=== PATIENT | male | born 1960 | race Caucasian/White ===

== ENCOUNTER 2017-12-27 23:57 | Emergency (ER) | payer BC, OTHER ==
[~2017-12-27] VITALS: Ht 188 cm; Wt 72.6 kg
[~2017-12-27 23:57] MED LIST: Advil200 M1 PO; CEPH500 PO; CYCL10 PO; GABA300 PO; HYDR1TAB94 PO; K-Dur20 MEQ PO; LEVSOD50 PO; Lasix40 MG PO; MELO7.5 PO; MORP30 PO; NAPR220 PO; PRED10 PO; Percocet 5-3251 EACH PO; Zofran Odt4 MG SL; Zofran Odt8 MG SL; [UNRECOGNIZED DRUG - REMARK]
[2017-12-28 02:00] LABS: BASOPHILS ABSOLUTE AUTO 0.02 K/mm3 (0.00-0.23); BASOPHILS PERCENT AUTO 0 % (0-2); EOSINOPHILS ABSOLUTE AUTO 0.07 K/mm3 (0.00-0.68); EOSINOPHILS PERCENT AUTO 1 % (0-6); Hematocrit 41.3 % (37.0-53.0); Hemoglobin 13.8 g/dL (13.5-17.5); IMMATURE GRAN ABSOLUTE AUTO 0.04 K/mm3 (0.00-0.10); IMMATURE GRAN PERCENT AUTO 1 % (0-1); LYMPHOCYTES ABSOLUTE AUTO 1.49 K/mm3 (0.84-5.20); LYMPHOCYTES PERCENT AUTO 20 % (21-46); MONOCYTES PERCENT AUTO 9 % (4-13); Mean Corpuscular HGB 33.3 pg (26.0-34.0); Mean Corpuscular HGB Conc 33.4 g/dL (31.5-36.5); Mean Corpuscular Volume 100 fL (80-100); Mean Platelet Volume 9.6 fL (9.1-12.4); NEUTROPHILS ABSOLUTE AUTO 5.13 K/mm3 (1.96-9.15); NEUTROPHILS PERCENT AUTO 69 % (41-73); Platelet Count 281 K/mm3 (150-400); RDW Coefficient Variation 13.8 % (11.7-14.2); RDW Standard Deviation 50.3 fL (35.1-46.3); Red Blood Cell Count 4.15 M/mm3 (4.30-5.90); White Blood Cell Count 7.45 K/mm3 (4.00-11.30)
[2017-12-28 02:18] LABS: Alanine Aminotransfer (ALT/SGP 275 U/L (12-78); Albumin/Globulin Ratio 0.9 (0.8-1.8); Alk Phos 360 U/L (50-136); Anion Gap 7 mmol/L (6-16); Aspartate Aminotrans (AST/SGOT 111 U/L (12-37); Bilirubin, Total 0.3 mg/dL (0.1-1.0); Blood Urea Nitrogen 20 mg/dL (8-24); CO2, Blood 29 mmol/L (21-32); Calcium, Blood 7.8 mg/dL (8.5-10.1); Chloride, Blood 104 mmol/L (98-108); Creatinine, Blood 0.71 mg/dL (0.60-1.20); Globulin, Blood 3.3 g/dL (2.2-4.0); Glomerular Filtration Rate >60 (60-); Glucose, Blood 74 mg/dL (70-99); Sodium, Blood 140 mmol/L (136-145); Total Protein, Blood 6.3 g/dL (6.4-8.2); Troponin I <0.015 ng/mL (0.000-0.040)
== END 2017-12-28 03:05 | disposition home or self-care (01) ==
LOC: ER 23:57
PROVIDERS: Emergency Medicine
DX: C43.9 Malignant melanoma of skin, unspecified (principal); C78.02 Secondary malignant neoplasm of left lung; C78.01 Secondary malignant neoplasm of right lung; C78.7 Secondary malignant neoplasm of liver and intrahepatic bile duct; C77.4 Secondary and unspecified malignant neoplasm of inguinal and lower limb lymph nodes; C79.51 Secondary malignant neoplasm of bone; G89.3 Neoplasm related pain (acute) (chronic); R07.9 Chest pain, unspecified; M54.9 Dorsalgia, unspecified; Z88.6 Allergy status to analgesic agent; Z79.899 Other long term (current) drug therapy; F17.210 Nicotine dependence, cigarettes, uncomplicated
CPT/HCPCS: 36415; 71046; 80053; 84484; 85025; 93005; 93010; 96374; 96375; 96376; 99284; J1170; J2405

== ENCOUNTER 2019-02-18 10:42 | Emergency (ER) | payer OTHER ==
[~2019-02-18] VITALS: Ht 188 cm; Wt 70.3 kg
[~2019-02-18 10:42] MED LIST changes: -MORP30 PO; +MORPHABOND ER15 MG PO; +Morphine Sulfat15 MG PO
[2019-02-18] MEDS ORDERED: ONDA8 PO (11:00)
[2019-02-18] MEDS ORDERED: LEVSOD125 PO (11:01)
[2019-02-18 12:39] LABS: BASOPHILS ABSOLUTE AUTO 0.02 K/mm3 (0.00-0.23); BASOPHILS PERCENT AUTO 0 % (0-2); EOSINOPHILS ABSOLUTE AUTO 0.02 K/mm3 (0.00-0.68); EOSINOPHILS PERCENT AUTO 0 % (0-6); Hematocrit 40.4 % (37.0-53.0); Hemoglobin 13.6 g/dL (13.5-17.5); IMMATURE GRAN ABSOLUTE AUTO 0.04 K/mm3 (0.00-0.10); IMMATURE GRAN PERCENT AUTO 1 % (0-1); LYMPHOCYTES ABSOLUTE AUTO 1.14 K/mm3 (0.84-5.20); LYMPHOCYTES PERCENT AUTO 13 % (21-46); MONOCYTES ABSOLUTE AUTO 0.99 K/mm3 (0.16-1.47); MONOCYTES PERCENT AUTO 11 % (4-13); Mean Corpuscular HGB 34.3 pg (26.0-34.0); Mean Corpuscular HGB Conc 33.7 g/dL (31.5-36.5); Mean Corpuscular Volume 102 fL (80-100); Mean Platelet Volume 9.3 fL (9.1-12.4); NEUTROPHILS ABSOLUTE AUTO 6.48 K/mm3 (1.96-9.15); NEUTROPHILS PERCENT AUTO 75 % (41-73); Platelet Count 228 K/mm3 (150-400); RDW Coefficient Variation 13.9 % (11.7-14.2); RDW Standard Deviation 52.4 fL (35.1-46.3); Red Blood Cell Count 3.96 M/mm3 (4.30-5.90); White Blood Cell Count 8.69 K/mm3 (4.00-11.30)
[2019-02-18 13:03] LABS: Alanine Aminotransfer (ALT/SGP 23 U/L (12-78); Albumin, Blood 2.4 g/dL (3.4-5.0); Albumin/Globulin Ratio 1.1 (0.8-1.8); Alk Phos 67 U/L (50-136); Anion Gap 5 mmol/L (6-16); Aspartate Aminotrans (AST/SGOT 30 U/L (12-37); Bilirubin, Total 0.2 mg/dL (0.1-1.0); Blood Urea Nitrogen 11 mg/dL (8-24); CO2, Blood 28 mmol/L (21-32); Calcium, Blood 7.3 mg/dL (8.5-10.1); Chloride, Blood 106 mmol/L (98-108); Creatinine, Blood 0.69 mg/dL (0.60-1.20); Globulin, Blood 2.2 g/dL (2.2-4.0); Glomerular Filtration Rate >60 (60-); Glucose, Blood 85 mg/dL (70-99); Potassium, Blood 3.6 mmol/L (3.5-5.5); Sodium, Blood 139 mmol/L (136-145); Total Protein, Blood 4.6 g/dL (6.4-8.2)
== END 2019-02-18 13:07 | disposition home or self-care (01) ==
LOC: ER 10:42
PROVIDERS: Emergency Medicine
DX: M54.12 Radiculopathy, cervical region (principal); F17.210 Nicotine dependence, cigarettes, uncomplicated
CPT/HCPCS: 36415; 80053; 85025; 99283

== ENCOUNTER 2019-02-19 16:08 | Inpatient (IN) | payer OTHER ==
[~2019-02-19] VITALS: Ht 182.9 cm; Wt 64.2 kg
[~2019-02-19 16:08] MED LIST changes: +LEVSOD125 PO; +ONDA8 PO
[2019-02-19 17:14] LABS: Alanine Aminotransfer (ALT/SGP 33 U/L (12-78); Albumin, Blood 3.2 g/dL (3.4-5.0); Alk Phos 92 U/L (50-136); Anion Gap 5 mmol/L (6-16); Aspartate Aminotrans (AST/SGOT 38 U/L (12-37); Bilirubin, Total 0.4 mg/dL (0.1-1.0); Blood Urea Nitrogen 11 mg/dL (8-24); Bun/Creatinine Ratio 12.7 (12.0-20.0); CO2, Blood 30 mmol/L (21-32); Calcium, Blood 8.5 mg/dL (8.5-10.1); Chloride, Blood 104 mmol/L (98-108); Creatinine, Blood 0.86 mg/dL (0.60-1.20); Globulin, Blood 3.3 g/dL (2.2-4.0); Glomerular Filtration Rate >60 (60-); Glucose, Blood 86 mg/dL (70-99); Sodium, Blood 139 mmol/L (136-145); Total Protein, Blood 6.5 g/dL (6.4-8.2)
[2019-02-19 17:50] LABS: BASOPHILS ABSOLUTE AUTO 0.02 K/mm3 (0.00-0.23); BASOPHILS PERCENT AUTO 0 % (0-2); EOSINOPHILS ABSOLUTE AUTO 0.01 K/mm3 (0.00-0.68); EOSINOPHILS PERCENT AUTO 0 % (0-6); Hematocrit 51.2 % (37.0-53.0); Hemoglobin 17.2 g/dL (13.5-17.5); IMMATURE GRAN ABSOLUTE AUTO 0.05 K/mm3 (0.00-0.10); IMMATURE GRAN PERCENT AUTO 0 % (0-1); LYMPHOCYTES ABSOLUTE AUTO 1.06 K/mm3 (0.84-5.20); LYMPHOCYTES PERCENT AUTO 10 % (21-46); MONOCYTES ABSOLUTE AUTO 1.01 K/mm3 (0.16-1.47); MONOCYTES PERCENT AUTO 9 % (4-13); Mean Corpuscular HGB 33.9 pg (26.0-34.0); Mean Corpuscular HGB Conc 33.6 g/dL (31.5-36.5); Mean Corpuscular Volume 101 fL (80-100); NEUTROPHILS PERCENT AUTO 81 % (41-73); Platelet Count 300 K/mm3 (150-400); RDW Coefficient Variation 14.1 % (11.7-14.2); RDW Standard Deviation 52.4 fL (35.1-46.3); Red Blood Cell Count 5.07 M/mm3 (4.30-5.90); White Blood Cell Count 11.15 K/mm3 (4.00-11.30)
[2019-02-19 18:28] LABS: Source, Urine Catheter
[2019-02-19 18:30] LABS: Appearance, Urine Clear (Clear); Bilirubin, Urine Neg (Neg); Blood, Urine Neg (Neg); Color, Urine Yellow (P-Yellow); Glucose Qualitative, Urine Neg (Neg); Ketones, Urine 1+ (Neg); Leukocyte Esterase, Urine Neg (Neg); Nitrite, Urine Neg (Neg); Protein, Urine Neg (Neg); Urobilinogen, Urine NORM (Normal)
[2019-02-19 18:46] LABS: U Amphetamine Screen Not Detected; U Barbituate Screen Not Detected; U Benzodiazapine Screen Not Detected; U Buprenorphine Screen Not Detected; U Cannabinoids Screen Not Detected; U Cocaine Screen Not Detected; U Methadone Screen Not Detected; U Methamphetamine Screen Not Detected; U Opiates Screen DETECTED; U Oxycodone Screen Not Detected; U Phencyclidine Screen Not Detected; U Propoxyphene Screen Not Detected
[2019-02-19 18:51] LABS: International Normalized Ratio 0.93; Prothrombin Time Results 9.8 Sec (9.7-11.5)
[2019-02-19 21:38] LABS: Adenovirus F 40/41 Not Detected (NOT DETECT); Astrovirus Not Detected (NOT DETECT); Campylobacter Sp Not Detected (NOT DETECT); Cryptosporidium Not Detected (NOT DETECT); Cyclospora Cayetanensis Not Detected (NOT DETECT); E. Coli O157 Not Detected (NOT DETECT); Entamoeba Histolytica Not Detected (NOT DETECT); Enteroaggregative E. coli-EAEC Not Detected (NOT DETECT); Enteropathogenic E. coli-EPEC Not Detected (NOT DETECT); Enterotoxigenic E. coli-ETEC Not Detected (NOT DETECT); Giardia Lamblia Not Detected (NOT DETECT); Norovirus GI/GII Not Detected (NOT DETECT); Plesiomonas Shigelloides Not Detected (NOT DETECT); Rotavirus A Not Detected (NOT DETECT); Salmonella Sp Not Detected (NOT DETECT); Sapovirus Not Detected (NOT DETECT); Shiga Toxin-prod E. coli-STEC Not Detected (NOT DETECT); Shigella/Enteroin E. coli-EIEC Not Detected (NOT DETECT); Vibrio Cholerae Not Detected (NOT DETECT); Vibrio Sp Not Detected (NOT DETECT); Yersinia Enterocolitica Not Detected (NOT DETECT)
[2019-02-20 01:27] LABS: CHOL/HDL RATIO 4.5; Cholesterol 141 mg/dL (50-200); HDL Cholesterol 31 mg/dL (>39); LDL/HDL RATIO 2.9; Low Density Lipoprotein Chol 88 mg/dL (0-110); Triglycerides 108 mg/dL (30-160); Very Low Density Lipoprot Chol 21 mg/dL (6-32)
[2019-02-20 01:32] LABS: Troponin I 0.409 ng/mL (0.000-0.040)
[2019-02-21 09:32] LABS: BASOPHILS ABSOLUTE AUTO 0.01 K/mm3 (0.00-0.23); BASOPHILS PERCENT AUTO 0 % (0-2); EOSINOPHILS ABSOLUTE AUTO 0.02 K/mm3 (0.00-0.68); EOSINOPHILS PERCENT AUTO 0 % (0-6); Hematocrit 39.5 % (37.0-53.0); Hemoglobin 13.4 g/dL (13.5-17.5); IMMATURE GRAN ABSOLUTE AUTO 0.04 K/mm3 (0.00-0.10); IMMATURE GRAN PERCENT AUTO 1 % (0-1); LYMPHOCYTES ABSOLUTE AUTO 1.18 K/mm3 (0.84-5.20); LYMPHOCYTES PERCENT AUTO 16 % (21-46); MONOCYTES ABSOLUTE AUTO 0.99 K/mm3 (0.16-1.47); MONOCYTES PERCENT AUTO 14 % (4-13); Mean Corpuscular HGB 33.8 pg (26.0-34.0); Mean Corpuscular HGB Conc 33.9 g/dL (31.5-36.5); Mean Corpuscular Volume 100 fL (80-100); Mean Platelet Volume 9.9 fL (9.1-12.4); NEUTROPHILS ABSOLUTE AUTO 4.99 K/mm3 (1.96-9.15); NEUTROPHILS PERCENT AUTO 69 % (41-73); Platelet Count 251 K/mm3 (150-400); RDW Standard Deviation 51.1 fL (35.1-46.3); Red Blood Cell Count 3.97 M/mm3 (4.30-5.90); White Blood Cell Count 7.23 K/mm3 (4.00-11.30)
[2019-02-21 09:37] LABS: Anion Gap 7 mmol/L (6-16); Blood Urea Nitrogen 5 mg/dL (8-24); Bun/Creatinine Ratio 7.4 (12.0-20.0); CO2, Blood 27 mmol/L (21-32); Calcium, Blood 7.5 mg/dL (8.5-10.1); Chloride, Blood 111 mmol/L (98-108); Creatinine, Blood 0.68 mg/dL (0.60-1.20); Glomerular Filtration Rate >60 (60-); Glucose, Blood 90 mg/dL (70-99); Potassium, Blood 2.9 mmol/L (3.5-5.5); Sodium, Blood 145 mmol/L (136-145)
[2019-02-22 06:24] LABS: BASOPHILS ABSOLUTE AUTO 0.02 K/mm3 (0.00-0.23); BASOPHILS PERCENT AUTO 0 % (0-2); EOSINOPHILS ABSOLUTE AUTO 0.05 K/mm3 (0.00-0.68); EOSINOPHILS PERCENT AUTO 1 % (0-6); Hematocrit 37.1 % (37.0-53.0); Hemoglobin 12.3 g/dL (13.5-17.5); IMMATURE GRAN ABSOLUTE AUTO 0.01 K/mm3 (0.00-0.10); IMMATURE GRAN PERCENT AUTO 0 % (0-1); LYMPHOCYTES ABSOLUTE AUTO 0.89 K/mm3 (0.84-5.20); LYMPHOCYTES PERCENT AUTO 13 % (21-46); MONOCYTES ABSOLUTE AUTO 1.06 K/mm3 (0.16-1.47); MONOCYTES PERCENT AUTO 15 % (4-13); Mean Corpuscular HGB 33.6 pg (26.0-34.0); Mean Corpuscular HGB Conc 33.2 g/dL (31.5-36.5); Mean Corpuscular Volume 101 fL (80-100); Mean Platelet Volume 9.4 fL (9.1-12.4); NEUTROPHILS ABSOLUTE AUTO 4.98 K/mm3 (1.96-9.15); NEUTROPHILS PERCENT AUTO 71 % (41-73); Platelet Count 221 K/mm3 (150-400); RDW Coefficient Variation 13.9 % (11.7-14.2); RDW Standard Deviation 51.5 fL (35.1-46.3); Red Blood Cell Count 3.66 M/mm3 (4.30-5.90); White Blood Cell Count 7.01 K/mm3 (4.00-11.30)
[2019-02-22 06:51] LABS: Anion Gap 4 mmol/L (6-16); Blood Urea Nitrogen 7 mg/dL (8-24); Bun/Creatinine Ratio 9.8 (12.0-20.0); CO2, Blood 26 mmol/L (21-32); Chloride, Blood 116 mmol/L (98-108); Creatinine, Blood 0.71 mg/dL (0.60-1.20); Glomerular Filtration Rate >60 (60-); Glucose, Blood 80 mg/dL (70-99); Magnesium, Blood 2.5 mg/dL (1.6-2.4); Potassium, Blood 3.8 mmol/L (3.5-5.5); Sodium, Blood 146 mmol/L (136-145)
[2019-02-23 04:28] LABS: BASOPHILS ABSOLUTE AUTO 0.02 K/mm3 (0.00-0.23); BASOPHILS PERCENT AUTO 0 % (0-2); EOSINOPHILS ABSOLUTE AUTO 0.04 K/mm3 (0.00-0.68); EOSINOPHILS PERCENT AUTO 1 % (0-6); Hemoglobin 12.9 g/dL (13.5-17.5); IMMATURE GRAN ABSOLUTE AUTO 0.02 K/mm3 (0.00-0.10); IMMATURE GRAN PERCENT AUTO 0 % (0-1); LYMPHOCYTES ABSOLUTE AUTO 0.94 K/mm3 (0.84-5.20); LYMPHOCYTES PERCENT AUTO 14 % (21-46); MONOCYTES ABSOLUTE AUTO 0.99 K/mm3 (0.16-1.47); MONOCYTES PERCENT AUTO 14 % (4-13); Mean Corpuscular HGB 34.8 pg (26.0-34.0); Mean Corpuscular HGB Conc 33.9 g/dL (31.5-36.5); Mean Corpuscular Volume 102 fL (80-100); Mean Platelet Volume 9.4 fL (9.1-12.4); NEUTROPHILS ABSOLUTE AUTO 4.96 K/mm3 (1.96-9.15); NEUTROPHILS PERCENT AUTO 71 % (41-73); Platelet Count 207 K/mm3 (150-400); RDW Coefficient Variation 13.9 % (11.7-14.2); RDW Standard Deviation 52.5 fL (35.1-46.3); Red Blood Cell Count 3.71 M/mm3 (4.30-5.90); White Blood Cell Count 6.97 K/mm3 (4.00-11.30)
[2019-02-23 04:47] LABS: Anion Gap 6 mmol/L (6-16); Blood Urea Nitrogen 8 mg/dL (8-24); Bun/Creatinine Ratio 12.4 (12.0-20.0); CO2, Blood 24 mmol/L (21-32); Chloride, Blood 113 mmol/L (98-108); Creatinine, Blood 0.64 mg/dL (0.60-1.20); Glomerular Filtration Rate >60 (60-); Glucose, Blood 68 mg/dL (70-99); Potassium, Blood 3.8 mmol/L (3.5-5.5); Sodium, Blood 143 mmol/L (136-145)
[2019-02-24 10:35] LABS: BASOPHILS ABSOLUTE AUTO 0.01 K/mm3 (0.00-0.23); BASOPHILS PERCENT AUTO 0 % (0-2); EOSINOPHILS ABSOLUTE AUTO 0.04 K/mm3 (0.00-0.68); EOSINOPHILS PERCENT AUTO 1 % (0-6); Hematocrit 38.8 % (37.0-53.0); IMMATURE GRAN ABSOLUTE AUTO 0.03 K/mm3 (0.00-0.10); IMMATURE GRAN PERCENT AUTO 0 % (0-1); LYMPHOCYTES ABSOLUTE AUTO 0.87 K/mm3 (0.84-5.20); LYMPHOCYTES PERCENT AUTO 12 % (21-46); MONOCYTES ABSOLUTE AUTO 0.84 K/mm3 (0.16-1.47); MONOCYTES PERCENT AUTO 11 % (4-13); Mean Corpuscular HGB 34.3 pg (26.0-34.0); Mean Corpuscular HGB Conc 33.5 g/dL (31.5-36.5); Mean Corpuscular Volume 102 fL (80-100); NEUTROPHILS ABSOLUTE AUTO 5.67 K/mm3 (1.96-9.15); NEUTROPHILS PERCENT AUTO 76 % (41-73); Platelet Count 200 K/mm3 (150-400); RDW Coefficient Variation 13.6 % (11.7-14.2); RDW Standard Deviation 51.8 fL (35.1-46.3); Red Blood Cell Count 3.79 M/mm3 (4.30-5.90); White Blood Cell Count 7.46 K/mm3 (4.00-11.30)
[2019-02-24 10:52] LABS: Anion Gap 4 mmol/L (6-16); Blood Urea Nitrogen 8 mg/dL (8-24); Bun/Creatinine Ratio 12.1 (12.0-20.0); CO2, Blood 31 mmol/L (21-32); Calcium, Blood 7.3 mg/dL (8.5-10.1); Chloride, Blood 106 mmol/L (98-108); Creatinine, Blood 0.66 mg/dL (0.60-1.20); Glomerular Filtration Rate >60 (60-); Glucose, Blood 74 mg/dL (70-99); Sodium, Blood 141 mmol/L (136-145)
[2019-02-25 13:44] LABS: Albumin, Blood 2.3 g/dL (3.4-5.0); Magnesium, Blood 1.8 mg/dL (1.6-2.4); Phosphorus, Blood 3.8 mg/dL (2.5-4.9)
[2019-02-26 04:58] LABS: Hematocrit 41.1 % (37.0-53.0); Hemoglobin 13.5 g/dL (13.5-17.5)
[2019-02-26 05:15] LABS: Albumin, Blood 2.3 g/dL (3.4-5.0); Anion Gap 5 mmol/L (6-16); Blood Urea Nitrogen 13 mg/dL (8-24); Bun/Creatinine Ratio 20.3 (12.0-20.0); CO2, Blood 29 mmol/L (21-32); Calcium, Blood 7.6 mg/dL (8.5-10.1); Chloride, Blood 106 mmol/L (98-108); Creatinine, Blood 0.64 mg/dL (0.60-1.20); Glomerular Filtration Rate >60 (60-); Glucose, Blood 80 mg/dL (70-99); Phosphorus, Blood 4.1 mg/dL (2.5-4.9); Potassium, Blood 3.9 mmol/L (3.5-5.5); Sodium, Blood 140 mmol/L (136-145)
[2019-02-26] MEDS ORDERED: ASPI81CH PO (11:32)
[2019-02-26] MEDS ORDERED: MAALOX ADVANCE1 EACH PO (11:32)
[2019-02-26] MEDS ORDERED: ATOR20 PO (11:33)
[2019-02-26] MEDS ORDERED: CLOP75 PO (11:35)
[2019-02-26] MEDS ORDERED: CYAN1000I IM (11:35)
[2019-02-26] MEDS ORDERED: FOLI400 PO (11:36)
[2019-02-26] MEDS ORDERED: DOCU100 PO (11:36)
[2019-02-26] MEDS ORDERED: FAMO20 PO (11:36)
[2019-02-26] MEDS ORDERED: Naloxone H0.4 MG/11 IV (11:37)
[2019-02-26] MEDS ORDERED: MIDO5 PO (11:37)
[2019-02-26] MEDS ORDERED: NICO21TP TOP (11:38)
[2019-02-26] MEDS ORDERED: MORP30 PO (11:40)
== END 2019-02-26 10:49 | DRG 280 ==
LOC: ER 16:08 → MEDS 21:42 → PCU 21:42 → MEDS 02-22 14:41 → ENPENDDIS 02-26 10:25 → MEDS 02-26 10:49
PROVIDERS: Emergency Medicine; Internal Medicine; ADMIT Internal Medicine
DX: I21.4 Non-ST elevation (NSTEMI) myocardial infarction (principal); I63.9 Cerebral infarction, unspecified; Z79.891 Long term (current) use of opiate analgesic; E03.9 Hypothyroidism, unspecified; G89.29 Other chronic pain; F17.210 Nicotine dependence, cigarettes, uncomplicated; R45.1 Restlessness and agitation; I95.9 Hypotension, unspecified; C43.9 Malignant melanoma of skin, unspecified
CPT/HCPCS: 36415; 51702; 70450; 70553; 71046; 78452; 80048; 80053; 80061; 80069; 81003; 82040; 82607; 82746; 83735; 84100; 84443; 84484; 85014; 85018; 85025; 85610; 85730; 87507; 92507; 92523; 93005; 93010; 93017; 93306; 93880; 96361-59; 96365-59; 96366-59; 96375-59; 96376-59; 97116; 97162; 97166; 97530; 97535; 99285-25; A9500; A9577; G0480; J0706; J1644; J2060; J2310; J2405; J2785; J3420; J3475; J3480; J7030; J7120

== ENCOUNTER 2019-04-06 22:48 | Inpatient (IN) | payer OTHER ==
[~2019-04-06] VITALS: Ht 188 cm; Wt 71.9 kg
[~2019-04-06 22:48] MED LIST changes: +ASPI81CH PO; +ATOR20 PO; +CLOP75 PO; +CYAN1000I IM; +DOCU100 PO; +FAMO20 PO; +FOLI400 PO; +MAALOX ADVANCE1 EACH PO; +MIDO5 PO; +MORP30 PO; +NICO21TP TOP; +Naloxone H0.4 MG/11 IV
[2019-04-06] MEDS ORDERED: SYNTHROID175 MCG PO (23:41)
[2019-04-06] MEDS ORDERED: MIDO5 PO (23:42)
[2019-04-06] MEDS ORDERED: Morphine Sulfat15 MG PO (23:43)
[2019-04-07 00:04] LABS: BASOPHILS PERCENT AUTO 0 % (0-2); EOSINOPHILS ABSOLUTE AUTO 0.02 K/mm3 (0.00-0.68); EOSINOPHILS PERCENT AUTO 0 % (0-6); Hematocrit 39.1 % (37.0-53.0); Hemoglobin 13.1 g/dL (13.5-17.5); IMMATURE GRAN ABSOLUTE AUTO 0.01 K/mm3 (0.00-0.10); IMMATURE GRAN PERCENT AUTO 0 % (0-1); LYMPHOCYTES ABSOLUTE AUTO 0.57 K/mm3 (0.84-5.20); LYMPHOCYTES PERCENT AUTO 11 % (21-46); MONOCYTES ABSOLUTE AUTO 0.26 K/mm3 (0.16-1.47); MONOCYTES PERCENT AUTO 5 % (4-13); Mean Corpuscular HGB 33.9 pg (26.0-34.0); Mean Corpuscular HGB Conc 33.5 g/dL (31.5-36.5); Mean Corpuscular Volume 101 fL (80-100); Mean Platelet Volume 9.9 fL (9.1-12.4); NEUTROPHILS ABSOLUTE AUTO 4.15 K/mm3 (1.96-9.15); NEUTROPHILS PERCENT AUTO 83 % (41-73); Platelet Count 175 K/mm3 (150-400); RDW Coefficient Variation 14.5 % (11.7-14.2); RDW Standard Deviation 54.3 fL (35.1-46.3); Red Blood Cell Count 3.86 M/mm3 (4.30-5.90); White Blood Cell Count 5.01 K/mm3 (4.00-11.30)
[2019-04-07 00:21] LABS: Alanine Aminotransfer (ALT/SGP 41 U/L (12-78); Albumin, Blood 2.2 g/dL (3.4-5.0); Alk Phos 107 U/L (50-136); Anion Gap 4 mmol/L (6-16); Aspartate Aminotrans (AST/SGOT 47 U/L (12-37); Bilirubin, Total 0.4 mg/dL (0.1-1.0); Blood Urea Nitrogen 7 mg/dL (8-24); Bun/Creatinine Ratio 10.2 (12.0-20.0); CO2, Blood 31 mmol/L (21-32); Calcium, Blood 6.9 mg/dL (8.5-10.1); Chloride, Blood 108 mmol/L (98-108); Creatinine, Blood 0.69 mg/dL (0.60-1.20); Globulin, Blood 2.3 g/dL (2.2-4.0); Glomerular Filtration Rate >60 (60-); Glucose, Blood 94 mg/dL (70-99); Potassium, Blood 3.2 mmol/L (3.5-5.5); Sodium, Blood 143 mmol/L (136-145); Total Protein, Blood 4.5 g/dL (6.4-8.2); Troponin I 0.019 ng/mL (0.000-0.040)
[2019-04-07 00:25] LABS: Free Thyroxine 1.18 ng/dL (0.70-1.60)
[2019-04-07 00:27] LABS: Thyroid Stimulating Hormone 53.1 uIU/mL (0.360-4.800)
[2019-04-07 06:20] LABS: BASOPHILS ABSOLUTE AUTO 0.01 K/mm3 (0.00-0.23); BASOPHILS PERCENT AUTO 0 % (0-2); EOSINOPHILS PERCENT AUTO 0 % (0-6); Hematocrit 36.4 % (37.0-53.0); Hemoglobin 12.3 g/dL (13.5-17.5); IMMATURE GRAN ABSOLUTE AUTO 0.01 K/mm3 (0.00-0.10); IMMATURE GRAN PERCENT AUTO 0 % (0-1); LYMPHOCYTES ABSOLUTE AUTO 0.55 K/mm3 (0.84-5.20); LYMPHOCYTES PERCENT AUTO 14 % (21-46); MONOCYTES ABSOLUTE AUTO 0.13 K/mm3 (0.16-1.47); MONOCYTES PERCENT AUTO 3 % (4-13); Mean Corpuscular HGB 33.3 pg (26.0-34.0); Mean Corpuscular HGB Conc 33.8 g/dL (31.5-36.5); Mean Corpuscular Volume 99 fL (80-100); NEUTROPHILS ABSOLUTE AUTO 3.21 K/mm3 (1.96-9.15); NEUTROPHILS PERCENT AUTO 82 % (41-73); Platelet Count 157 K/mm3 (150-400); RDW Coefficient Variation 14.3 % (11.7-14.2); RDW Standard Deviation 51.8 fL (35.1-46.3); Red Blood Cell Count 3.69 M/mm3 (4.30-5.90); White Blood Cell Count 3.91 K/mm3 (4.00-11.30)
[2019-04-07 06:46] LABS: Anion Gap 6 mmol/L (6-16); Blood Urea Nitrogen 7 mg/dL (8-24); Bun/Creatinine Ratio 10.2 (12.0-20.0); CO2, Blood 28 mmol/L (21-32); Calcium, Blood 6.8 mg/dL (8.5-10.1); Chloride, Blood 111 mmol/L (98-108); Creatinine, Blood 0.69 mg/dL (0.60-1.20); Glomerular Filtration Rate >60 (60-); Glucose, Blood 96 mg/dL (70-99); Potassium, Blood 3.4 mmol/L (3.5-5.5); Sodium, Blood 145 mmol/L (136-145)
--- NOTE | 2019-04-07 10:02 | NUR ---
GLUCOSE: BLOOD SUGAR NOTED TO BE 83, JUICE GIVEN ALONG WITH YOGURT. PT TOLLERATED WELL.
--- NOTE | 2019-04-07 13:38 | NUR ---
IMAGING: APPLICATIONS CONSULTANT DELIVERED 37% ORGANICALLY BOUND IODINE ISOVUE-370 IOPAMIDOL INJECTION 76%. ADMINISTERED NOW DOSE OF APPROX 300ML. WILL ADMINISTER APPRX 300ML @ 1630 & 1730 FOR SCAN
--- NOTE | 2019-04-07 19:00 | NUR ---
RECEIVED HAND OFF FROM DAY NURSE USING SBAR.
--- NOTE | 2019-04-07 19:42 | NUR ---
SHIFT SUMMARY: NO ACUTE CHANGES NOTED T/O THE NIGHT. PT HEART RATE WAS NOTED TO REMAIN BETWEEN 50-60 T/O THE SHIFT, BUT FOR APPROX 10 MIN PT WAS NOTED TO HAVE A HEART RATE IN THE UPPER 40'S. NO DISTRESS NOTED. PT APPEARS TO BE AT BASELINE, NOTED BY HIS SISTER, FOR MENTATION. SISTER REPORTS THAT HE HAS DIFFICULTIES WITH GETTING WORDS TOGETHER FREQUENTLY AND IT INCREASES WITH STRESS. PT WENT FOR CT NO DISTRESS NOTED WHILE AWAY. PT UP TO BSC WITH SBA HAD A LARGE BM. PT ABLE TO USE THE URINAL INDEPENDENTLY. MEALS PT WAS ABLE TO EAT OVER 50% OF EACH MEAL. VSS T/O THE DAY. REPORT GIVEN TO ONCOMEING RN.
--- NOTE | 2019-04-07 20:00 | NUR ---
LYING IN LOW FOWLERS WITH EYES CLOSED. AAO X3, FAITH, FOLLOWS ALL COMMANDS, APHASIA NOTED AT TIMES. REORIENTED TO ROOM, CALL SYSTEM, AND POC, NODS HEAD IN UNDERSTANDING. RESPIRATIONS EVEN AND UNLABORED ON ROOM AIR. LUNG SOUNDS CLEAR BILATERALLY. ABDOMEN SOFT AND NONDISTENDED. BOWEL SOUNDS PRESENT IN ALL QUADS. CONTINENT OF BOWEL AND BLADDER, USES URINAL AT BEDSIDE. SCD'S TO BLE. DENIES FURTHER NEEDS OR WANTS AT THIS TIME. SAFETY MEASURES IN PLACE. WILL CONTINUE TO MONITOR.
[2019-04-08 03:41] LABS: BASOPHILS ABSOLUTE AUTO 0.01 K/mm3 (0.00-0.23); BASOPHILS PERCENT AUTO 0 % (0-2); EOSINOPHILS PERCENT AUTO 0 % (0-6); Hematocrit 34.6 % (37.0-53.0); Hemoglobin 11.8 g/dL (13.5-17.5); IMMATURE GRAN ABSOLUTE AUTO 0.01 K/mm3 (0.00-0.10); IMMATURE GRAN PERCENT AUTO 0 % (0-1); LYMPHOCYTES ABSOLUTE AUTO 0.62 K/mm3 (0.84-5.20); LYMPHOCYTES PERCENT AUTO 14 % (21-46); MONOCYTES PERCENT AUTO 5 % (4-13); Mean Corpuscular HGB 33.8 pg (26.0-34.0); Mean Corpuscular HGB Conc 34.1 g/dL (31.5-36.5); Mean Corpuscular Volume 99 fL (80-100); Mean Platelet Volume 10.5 fL (9.1-12.4); NEUTROPHILS ABSOLUTE AUTO 3.63 K/mm3 (1.96-9.15); NEUTROPHILS PERCENT AUTO 81 % (41-73); Platelet Count 181 K/mm3 (150-400); RDW Coefficient Variation 14.4 % (11.7-14.2); RDW Standard Deviation 52.5 fL (35.1-46.3); Red Blood Cell Count 3.49 M/mm3 (4.30-5.90); White Blood Cell Count 4.47 K/mm3 (4.00-11.30)
[2019-04-08 03:58] LABS: Anion Gap 5 mmol/L (6-16); Blood Urea Nitrogen 8 mg/dL (8-24); Bun/Creatinine Ratio 11.5 (12.0-20.0); CO2, Blood 28 mmol/L (21-32); Calcium, Blood 6.9 mg/dL (8.5-10.1); Chloride, Blood 107 mmol/L (98-108); Glomerular Filtration Rate >60 (60-); Glucose, Blood 105 mg/dL (70-99); Phosphorus, Blood 3.2 mg/dL (2.5-4.9); Potassium, Blood 3.1 mmol/L (3.5-5.5); Sodium, Blood 140 mmol/L (136-145)
--- NOTE | 2019-04-08 05:00 | NUR ---
URINE COLLECTED FOR URINE TOXICOLOGY STUDY AND SENT TO LAB VIA TUBE SYSTEM.
[2019-04-08 05:33] LABS: U Amphetamine Screen Not Detected; U Barbituate Screen Not Detected; U Benzodiazapine Screen Not Detected; U Buprenorphine Screen Not Detected; U Cannabinoids Screen Not Detected; U Cocaine Screen Not Detected; U Methadone Screen Not Detected; U Methamphetamine Screen Not Detected; U Opiates Screen DETECTED; U Oxycodone Screen Not Detected; U Phencyclidine Screen Not Detected; U Propoxyphene Screen Not Detected
--- NOTE | 2019-04-08 06:39 | NUR ---
LYING IN LOW FOWLERS WITH EYES OPEN WHILE WATCHING TV. HAS RESTED WELL THIS SHIFT. HAS C/O SHEIKH AND ABD PAIN X2 THIS SHIFT. NO FURTHER CHANGES THIS SHIFT. SAFETY MEASURES IN PLACE. WILL GIVE HAND OFF TO ONCOMING SHIFT USING SBAR.
--- NOTE | 2019-04-08 08:26 | NUR ---
NURSING ICU DAYSHIFT: Assumed care of pt at approx 0700. A/O, mildly forgetful at times, pleasant, cooperative w/care. Mild general weakness though is able to ambulate w/o difficulty. Denies any pain/discomfort at rest. Skin is fragile though intact w/no breakdown. Cardiac monitoring in place, SB/SR w/HR upper 50's to low 60's, no c/p CP/pressure, SBP 103, no noted edema. L/S cta t/o, O2 sat mid 90's on RA, denies dyspnea, no noted cough. Abd SNT, BT+, good appetite, voiding w/o difficulty. PIV x1, s/l. No s/s of acute distress at this time. Pt denies any current needs or questions regarding plan of care. Sister currently at bedside. Seen by PMD, new d/o received. Cardiology consult called, labs to be drawn, PT/OT ordered. Oncologist currently at bedside. Pt remains PCU status at this time, call light in reach, cont to monitor for any changes.
--- NOTE | 2019-04-08 08:26 | NUR ---
NURSING ICU DAYSHIFT: Assumed care of pt at approx 0700. A/O, mildly forgetful at times, pleasant, cooperative w/care. Mild general weakness though is able to ambulate w/o difficulty. Denies any pain/discomfort at rest. Skin is fragile though intact w/no breakdown. Cardiac monitoring in place, SB/SR w/HR upper 50's to low 60's, no c/p CP/pressure, SBP 103, 2+ BLE edema, general non-pitting edema. L/S cta t/o, O2 sat mid 90's on RA, denies dyspnea, no noted cough. Abd SNT, BT+, good appetite, voiding w/o difficulty. PIV x1, s/l. No s/s of acute distress at this time. Pt denies any current needs or questions regarding plan of care. Sister currently at bedside. Seen by PMD, new d/o received. Cardiology consult called, labs to be drawn, PT/OT ordered. Oncologist currently at bedside. Pt remains PCU status at this time, call light in reach, cont to monitor for any changes.
--- NOTE | 2019-04-08 17:13 | NUR ---
NURSING PCU DAYSHIFT SUMMARY: No signficant changes noted t/o the shift. BP has remained stable, HR 40-60's at rest. Pt has c/o increasing SHEIKH which is uncommon per pt, treating w/tylenol as ordered. Worked w/P.T., ambulated approx 30 seconds before becoming weak and unsteady, assisted back to bed, PMD notified of pt's status. Head MRI completed, results received. Family at bedside intermittently t/o shift. Updates provided, plan of care discussed. Pt denies any questions/needs at this time. Call light in reach, cont to monitor until rpt is given to NOC RN.
--- NOTE | 2019-04-08 18:04 | NUR ---
TRANSFER SUMMARY: PCU room assignment received. Rpt provided to accepting RN. Call placed to sister for notification of xfer. No s/s of acute distress at this time, monitor until xfer is completed.
--- NOTE | 2019-04-08 20:00 | NUR ---
ASSUMED CARE PT RESTING IN ROOM COMFORTABLY AT THSI TIME. PER DAY SHIFT PT WAS ICU TRANSFER BEING TREATED FOR BRADYCARDIA. PT IS ABLE TO STAND W/ SB AND WALK INTO BATHROOM. PT REPORTS NO CP OR SOB. PT DOES REPORT GENERAL WEAKNESS , AND FEELLING "POORLY". RESP EVEN UNLABORED ON RA W/ SATS >92%. PER DAY SHIFT PT AWAITING HALTER MONITOR. PT AOX3, HAS DIFFICULTY FINDING CORRETS WORDS, AND IS SLOW TO REPSOND. PT HAS HX OF RECENT STROKE IN LAST YEAR. DENIES OTHER NEEDS AT THIS TIME. CALL LIGHT IS IN REACH.
--- NOTE | 2019-04-08 20:15 | NUR ---
PT C/O HEADACHE. MEDICATED PER EMAR. PT REPORTS TAKES MORPHINE BID AT HOME FOR HEAD PAIN R/T CANCER W/ METS. PT EDUCATED ABOUT EFFECT OF MORPHINE ON HR AND BP. MEDICATED WITH ULTRAM PER EMAR. WILL REEVALUATE.
--- NOTE | 2019-04-08 23:30 | NUR ---
PROVIDER CALLED PT REPORTING HEAD ACHE NOT IMPROVING, GETTING WORSE. PT REQUESTING HOME DOSE OF MORPHINE. PROVIDER CALLED AND ADVISED OF PT HOME DOSE OF MORHPHINE. ONE DOSE OF HOME MORPHINE ORDERED FOR PT HEADACHE. PER PROVIDER WATCH AND MONITOR HR CLOSELY AFTER ADMIN. PT HR 40'S-50'S CURRENTLY.
[2019-04-09 03:59] LABS: BASOPHILS ABSOLUTE AUTO 0.01 K/mm3 (0.00-0.23); BASOPHILS PERCENT AUTO 0 % (0-2); EOSINOPHILS PERCENT AUTO 0 % (0-6); Hematocrit 35.4 % (37.0-53.0); Hemoglobin 11.7 g/dL (13.5-17.5); IMMATURE GRAN ABSOLUTE AUTO 0.04 K/mm3 (0.00-0.10); IMMATURE GRAN PERCENT AUTO 1 % (0-1); LYMPHOCYTES ABSOLUTE AUTO 1.05 K/mm3 (0.84-5.20); LYMPHOCYTES PERCENT AUTO 19 % (21-46); MONOCYTES ABSOLUTE AUTO 0.64 K/mm3 (0.16-1.47); MONOCYTES PERCENT AUTO 12 % (4-13); Mean Corpuscular HGB 33.1 pg (26.0-34.0); Mean Corpuscular HGB Conc 33.1 g/dL (31.5-36.5); Mean Corpuscular Volume 100 fL (80-100); Mean Platelet Volume 10.3 fL (9.1-12.4); NEUTROPHILS ABSOLUTE AUTO 3.83 K/mm3 (1.96-9.15); NEUTROPHILS PERCENT AUTO 69 % (41-73); Platelet Count 178 K/mm3 (150-400); RDW Coefficient Variation 14.5 % (11.7-14.2); RDW Standard Deviation 53.2 fL (35.1-46.3); Red Blood Cell Count 3.53 M/mm3 (4.30-5.90); White Blood Cell Count 5.57 K/mm3 (4.00-11.30)
[2019-04-09 04:16] LABS: Albumin, Blood 2.1 g/dL (3.4-5.0); Anion Gap 3 mmol/L (6-16); Blood Urea Nitrogen 9 mg/dL (8-24); Bun/Creatinine Ratio 13.9 (12.0-20.0); CO2, Blood 30 mmol/L (21-32); Calcium, Blood 7.2 mg/dL (8.5-10.1); Chloride, Blood 107 mmol/L (98-108); Creatinine, Blood 0.65 mg/dL (0.60-1.20); Glomerular Filtration Rate >60 (60-); Glucose, Blood 85 mg/dL (70-99); Phosphorus, Blood 3.7 mg/dL (2.5-4.9); Potassium, Blood 3.7 mmol/L (3.5-5.5); Sodium, Blood 140 mmol/L (136-145)
--- NOTE | 2019-04-09 05:38 | NUR ---
SHIFT SUMMARY PT SLEEPING IN ROOM COMFORTABLY AT THIS TIME. PT HAD NO ACUTE CHANGES IN STATUS T/O NIGHT. PT CONTINUED TO HAVE BRADYCARDIA T/O NIGHT WITH DIPS INTO THE 30'S. PT REMAINED ASYMPTOMATIC T/O, AND HR INCREASED W/ VERBAL STIMULATION. PT REPORTED HEADACHE PAIN THAT WAS NOT RELIVED BY PREVIOUS MEDICATIONS. HOME DOSE OF MORPHINE WAS OBTAINED FROM PROVIDER, AND ONE DOSE WAS ADMINISTERED TO PT. PT TOLERATED WELL, SLIGHT DECREASE IN HR NOTED. PT WAS ABLE TO INCREAASE HR W/ VERBAL STIMULATION ONLY. RESP EVEN UNLABORED ON RA W/ SATS >95%. PT DENIES ANY CP OR SOB. CALL LIGHT IS IN REACH. PT CALLS APPRIORIATELY. BED ALARM ON FOR SAFETY PT HAS HAD RECENT CONFUSION.
--- NOTE | 2019-04-09 18:39 | NUR ---
SHIFT SUMMARY. NO ACUTE CHANGES NOTED THIS SHIFT. PT HAS BEEN HYPOTENSIVE AND BRADICARDIC BUT NOT SYMPTOMATIC, PT HAS BEEN UP IN THE ROOM AND WALKING THE HALLS. PT IS VERY STEADY ON HIS FEET. PER CARDIOLOGY PT DOES NOT NEED A PACEMAKER AT THIS TIME BUT IS TO FOLLOW UP WITH OUT PT CARDIOLOGY. CALL LIGHT IN REACH, BED IS LOCKED AND LOW WILL CONTINUE TO MONITOR.
--- NOTE | 2019-04-10 03:39 | NUR ---
ASSUMED CARE OF PATIENT AT [facility] FROM ANGEL Leo RN. PATIENT ALERT AND ORIENTED; REPORTS TROUBLE FINDING THE RIGHT WORDS AT TIMES; PATIENT REPORTS CHRONIC PAIN IN LEFT SIDE OF FACE; MEDICATED PER EMAR. PATIENT DENIES CP/PRESSURE, NUMBNESS, TINGLING, DIZZINESS AND NAUSEA. PATIENT SBA OUT OF BED. BRADYCARDIA ON TELE; RATE DROPS TO 35 AT TIMES; OXYGEN SATURATION ABOVE 90% ON ROOM AIR. MEDIPORT NOT ACCESS; PIV S/L. PATIENT CURRENTLY RESTING IN BED; CALL LIGHT IN REACH; BED IN LOWEST POSISTION; BED ALARM ON; WILL CONTINUE TO MONITOR AND ASSESS UNTIL END OF SHIFT.
[2019-04-10] MEDS ORDERED: PREDNISONE PO (11:02)
--- NOTE | 2019-04-10 11:32 | NUR ---
CALL PLACED TO DR. EASTON (DIE MAINTENANCE TECHNICIAN). OK'D FOR DISCHARGE HOME TODAY ONCE HOLTER MONITOR IS PLACED.
--- NOTE | 2019-04-10 12:02 | NUR ---
PLACED 48 HOUR HOLTER MONITOR ON PT, GAVE INSTRUCTIONS, PT VERBALIZED UNDERSTANDING
--- NOTE | 2019-04-10 15:13 | NUR ---
DISCHARGE NOTE PT STABLE FOR DISCHARGE WITH HOME HEALTH. HOLTER MONITOR PLACED BY HEART CENTER STAFF. IV REMOVED. DISCHARGE INSTRUCTIONS REVIEWED WITH PT AND SISTER. PT AND SISTER VERBALIZE UNDERSTANDING AND DENY QUESTIONS. PT DISCHARGED WITH BELONGINGS TO WAITING CAR.
== END 2019-04-10 15:15 | disposition home or self-care (01) | DRG 643 ==
LOC: ER 22:48 → PCU 04-07 02:18 → ICUE 04-07 02:18 → ICUW 04-07 02:18 → ICUE 04-07 02:21 → PCU 04-08 18:07
PROVIDERS: Family Medicine; Physician Assistant; ADMIT Hospitalist
DX: E34.9 Endocrine disorder, unspecified (principal); G92 Toxic encephalopathy; C78.00 Secondary malignant neoplasm of unspecified lung; C79.51 Secondary malignant neoplasm of bone; C78.7 Secondary malignant neoplasm of liver and intrahepatic bile duct; E46 Unspecified protein-calorie malnutrition; R00.1 Bradycardia, unspecified; E83.51 Hypocalcemia; Z79.82 Long term (current) use of aspirin; F17.210 Nicotine dependence, cigarettes, uncomplicated; E16.2 Hypoglycemia, unspecified; E86.1 Hypovolemia; I95.9 Hypotension, unspecified; E87.6 Hypokalemia; C43.9 Malignant melanoma of skin, unspecified; I25.10 Atherosclerotic heart disease of native coronary artery without angina pectoris; Z79.02 Long term (current) use of antithrombotics/antiplatelets; T45.1X5A Adverse effect of antineoplastic and immunosuppressive drugs, initial encounter; Y92.9 Unspecified place or not applicable; E27.40 Unspecified adrenocortical insufficiency; Z79.52 Long term (current) use of systemic steroids
CPT/HCPCS: 36415; 70450; 70553; 71260; 74177; 80048; 80053; 80069; 82533; 82947; 83690; 84134; 84439; 84443; 84484; 85025; 93005; 93010; 93225; 93226; 96374; 97116; 97161; 97165; 97530; 97535; 99285-25; A9270; A9577; J0610; J1650; J1720; J7030; J7512; Q9967